=== PATIENT | female | born 1985 | race Caucasian/White ===

== ENCOUNTER 2019-08-11 09:48 | Observation (INO) ==
[2019-08-11] MEDS ORDERED: *HR* LORazepam 2 MG/ML VIAL IVP STA (10:25)
[2019-08-11] MEDS ORDERED: Ibuprofen 600 MG TABLET PO ONE (10:25)
[2019-08-11 10:32] LABS: Bilirubin,Urine Negative (Negative); Blood,Urine Negative (Negative); Clarity,Urine Cloudy (Clear); Color,Urine Yellow (Yellow); Glucose,Urine (UA) Normal (Normal); Ketones,Urine Negative (Negative); Leukocyte Esterase,Urine Negative (Negative); Nitrite,Urine Negative (Negative); Protein,Urine 30 mg/dL (Neg-Trace); Specific Gravity,Urine > 1.030 (1.010-1.025); Urobilinogen,Urine Normal (Normal)
[2019-08-11 10:34] LABS: Bacteria,Urine None Seen per hpf (None-Few); Hyaline Casts,Urine None Seen per lpf (None-Few); Squamous Epithelial Cell,Urine Many per lpf (None-Few); WBC,Urine 0-3 per hpf (0-3)
[2019-08-11 10:35] LABS: Amphetamine Screen,Urine Negative ng/mL (Cutoff=1000); Barbiturate Screen,Urine Negative ng/mL (Cutoff=200); Benzodiazepines Screen,Urine Positive ng/mL (Cutoff=200); Cannabinoid Screen,Urine Positive ng/mL (Cutoff = 50); Cocaine Screen,Urine Negative ng/mL (Cutoff= 300); Opiate Screen,Urine Negative ng/mL (Cutoff=300); Phencyclidine Screen,Urine Negative ng/mL (Cutoff=25)
[2019-08-11 10:45] LABS: Basophils % 0.2 %; Hematocrit 43.6 % (35.3-44.9); Hemoglobin 14.3 g/dL (11.5-15.4); Immature Granulocytes % 0.4 % (0-4); Lymphocytes # 2.2 K/mcL (0.6-4.6); Lymphocytes % 13.2 %; Mean Corpuscular HGB Conc 32.8 g/dL (31.6-35.5); Mean Corpuscular Hemoglobin 27.9 pg (28.0-33.3); Mean Platelet Volume 9.5 fL (9.4-12.4); Monocytes % 5.9 %; Neutrophils # 13.1 K/mcL (1.6-8.9); Platelet Count 543 K/mcL (140-400); Red Blood Count 5.13 M/mcL (3.82-4.97); Red Cell Distribution Width 14.5 % (11.5-14.5); Segmented Neutrophils % 80.3 %; White Blood Count 16.3 K/mcL (4.3-11.1)
[2019-08-11 11:05] LABS: Acetaminophen < 10 mcg/mL (10-20); Alanine Aminotransferase 20 Units/L (7-52); Albumin 4.7 g/dL (3.5-5.7); Albumin/Globulin Ratio 1.2 (1.1-2.2); Alkaline Phosphatase 77 Units/L (34-104); Aspartate Amino Transferase 19 Units/L (13-39); BUN/Creatinine Ratio 29 (6-26); Bilirubin,Direct 0.1 mg/dL (0.0-0.2); Bilirubin,Indirect 0.4 mg/dL (0.0-1.2); Bilirubin,Total 0.5 mg/dL (0.3-1.0); Blood Urea Nitrogen 21 mg/dL (6-20); Calcium 9.9 mg/dL (8.6-10.3); Carbon Dioxide 24 mEq/L (23-29); Chloride 100 mEq/L (98-107); Ethanol < 10 mg/dL (Less than 10); Globulin 3.9 g/dL (2.4-3.5); Glucose 114 mg/dL (70-105); Osmolality,Calculated 286 (280-300); Potassium 3.4 mEq/L (3.5-5.1); Salicylate < 2.5 mg/dL (15.0-30.0); Sodium 136 mEq/L (136-145); Total Protein 8.6 g/dL (6.4-8.9); eGFR For African Americans > 60 (> 60); eGFR For Non-African Americans > 60 (> 60)
[2019-08-11 11:06] LABS: Troponin I < 0.03 ng/mL (< 0.04)
[2019-08-11] MEDS: Nicotine 14 MG PATCH.TD24 TD SCH (11:27)
[2019-08-11] MEDS ORDERED: Acetaminophen 325 MG TABLET PO PRN (13:06)
[2019-08-11] MEDS ORDERED: Mag Hydrox/Al Hydrox/Simeth 30 ML UDC PO PRN (13:06)
[2019-08-11] MEDS ORDERED: MOM Conc 10 ML UD.LIQ PO PRN (13:06)
[2019-08-11] MEDS ORDERED: traMADol 50 MG TABLET PO PRN (13:06)
[2019-08-11] MEDS ORDERED: Naloxone 0.4 MG/ML INJ IVP PRN (13:06)
[2019-08-11] MEDS ORDERED: *HR* Promethazine 25 MG/ML VIAL IVP PRN (13:06)
[2019-08-11] MEDS ORDERED: Ondansetron 4 MG/2 ML VIAL IVP PRN (13:06)
[2019-08-11] MEDS ORDERED: *HR* LORazepam 2 MG/ML VIAL IVP PRN ×2 (13:10)
[2019-08-11] MEDS: Haloperidol Lactate 5 MG/ML VIAL IVP PRN ×2 (13:28→18:38)
[2019-08-11] MEDS: *HR* Heparin 5,000 UNIT/ML VIAL SQ SCH (16:52)
[2019-08-11] MEDS: *HR* LORazepam 2 MG/ML VIAL IVP PRN (23:07)
[2019-08-12] MEDS: *HR* Heparin 5,000 UNIT/ML VIAL SQ SCH ×2 (04:54→17:05)
[2019-08-12 05:35] LABS: Basophils # 0.1 K/mcL (0.0-0.2); Basophils % 0.5 %; Hematocrit 40.2 % (35.3-44.9); Hemoglobin 13.3 g/dL (11.5-15.4); Immature Granulocytes % 0.3 % (0-4); Lymphocytes # 2.7 K/mcL (0.6-4.6); Lymphocytes % 23.1 %; Mean Corpuscular HGB Conc 33.1 g/dL (31.6-35.5); Mean Corpuscular Hemoglobin 28.2 pg (28.0-33.3); Mean Corpuscular Volume 85.2 fL (83.0-100.0); Mean Platelet Volume 9.5 fL (9.4-12.4); Monocytes % 8.3 %; Neutrophils # 7.9 K/mcL (1.6-8.9); Platelet Count 477 K/mcL (140-400); Red Blood Count 4.72 M/mcL (3.82-4.97); Red Cell Distribution Width 14.5 % (11.5-14.5); Segmented Neutrophils % 67.8 %; White Blood Count 11.6 K/mcL (4.3-11.1)
[2019-08-12 05:52] LABS: BUN/Creatinine Ratio 27 (6-26); Blood Urea Nitrogen 15 mg/dL (6-20); Calcium 9.2 mg/dL (8.6-10.3); Carbon Dioxide 20 mEq/L (23-29); Chloride 103 mEq/L (98-107); Glucose 114 mg/dL (70-105); Osmolality,Calculated 280 (280-300); Potassium 3.9 mEq/L (3.5-5.1); Sodium 134 mEq/L (136-145); eGFR For African Americans > 60 (> 60); eGFR For Non-African Americans > 60 (> 60)
[2019-08-12] MEDS: Nicotine 14 MG PATCH.TD24 TD SCH (08:38)
[2019-08-12] MEDS: Thiamine (B-1) 100 MG TABLET PO SCH (08:38)
[2019-08-12] MEDS: Vitamin B Complex/Vit C/Vit E 1 EACH TABLET PO SCH (08:38)
[2019-08-12] MEDS: Folic Acid 1 MG TABLET PO SCH (08:38)
[2019-08-12] MEDS: Haloperidol Lactate 5 MG/ML VIAL IVP PRN (09:21)
[2019-08-12] MEDS ORDERED: hydrOXYzine pamoate 25 MG CAPSULE PO PRN (09:27)
[2019-08-12] MEDS ORDERED: traZODone 50 MG TABLET PO PRN (11:10)
[2019-08-12] MEDS: *HR* LORazepam 2 MG/ML VIAL IVP PRN ×5 (12:00→22:28)
[2019-08-12] MEDS: risperiDONE 0.25 MG TABLET PO SCH (20:35)
[2019-08-13] MEDS: *HR* Heparin 5,000 UNIT/ML VIAL SQ SCH (05:16)
[2019-08-13] MEDS: Nicotine 14 MG PATCH.TD24 TD SCH (08:06)
[2019-08-13] MEDS: Vitamin B Complex/Vit C/Vit E 1 EACH TABLET PO SCH (08:06)
[2019-08-13] MEDS: Folic Acid 1 MG TABLET PO SCH (08:07)
[2019-08-13] MEDS: risperiDONE 0.25 MG TABLET PO SCH (08:07)
[2019-08-13] MEDS: Thiamine (B-1) 100 MG TABLET PO SCH (08:07)
[2019-08-13] MEDS: *HR* LORazepam 2 MG/ML VIAL IVP PRN (09:34)
[2019-08-13 11:55] VITALS: BP 160/90
== END 2019-08-13 14:12 | disposition left against medical advice (07) ==
LOC: 3BNU 09:48 → EMEROOARM 09:48 → 3BNU 12:21
PROVIDERS: ADMIT Internal Medicine; ATTEND Internal Medicine